=== PATIENT | male | born 1980 | race Caucasian/White ===

== ENCOUNTER 2019-09-19 17:49 | Observation (INO) | payer BC, SELFPAY ==
--- NOTE | ~2019-09-19 | XR_ITS ---
EXAMINATION: XR surgery orthopedic DATE: 09/20/2019 17:57 INDICATION: Right tibial nailing TECHNIQUE: 9 fluoroscopic spot images of the right tibia were obtained during procedure performed by Dr. Bowman. Radiologist was not present for the imaging or procedure. The amount of fluoroscopy t edin used during this procedure was 3.6 minutes. COMPARISON: 09/20/2019 FINDINGS: Images demonstrate placement of an antegrade intramedullary boom with proximal and distal interlocking screw fixation spanning a mildly comminuted oblique fracture of the mid to distal right tibial diaph ysis. There is approximately one cortical width residual posterior and lateral displacement. Similar degree of mild displacement of a comminuted fracture of the proximal right fibular diaphysis which is without fixation. IMPRESSION: 1. Comminuted right fibular and tibial diaphyseal fractures with antegrade intramedullary boom fixatio n of the tibial fracture. See procedure note for further detail. Reviewed, dictated and finalized at location A. IMPRESSION: 1. Comminuted right fibular and tibial diaphyseal fractures with antegrade intr amedullary boom fixation of the tibial fracture. See procedure note for further detail.
--- NOTE | ~2019-09-19 | XR_ITS ---
EXAMINATION: XR tibia fibula RT 2V EXAM DATE: 09/19/2019 18:49 INDICATION: Postreduction. TECHNIQUE: Right tibia/fibula frontal and lateral projections obtained and reviewed. Comparison is ma de to prior examination from earlier same date. FINDINGS: The right distal tibial diaphyseal and proximal fibular diaphyseal mildly comminuted fract ures with slight interval reduction. There is still about a centimeter of displacement of the tibial fracture. Alignment is near-anatomic. A cast or splint has been applied. The ankle was imaged on these examinations and the mortise appears intact. IMPRESSION: 1. Splinted partially reduced right tibial and fibular shaft fractures. 2. Unremarkable ankle. Reviewed, dictated and finalized at location A.
--- NOTE | ~2019-09-19 | XR_ITS ---
EXAMINATION: XR wrist RT min 3V DATE: 09/20/2019 10:59 INDICATION: Right wrist pain. TECHNIQUE: 4 views of right wrist were obtained. COMPARISON: None. FINDINGS: Bone alignment is normal. No fracture. Joint spaces are well maintained. IMPRESSION: 1. Normal right wrist. Reviewed, dictated and finalized at location A. IMPRESSION: 1. Normal right wrist.
--- NOTE | ~2019-09-19 | XR_ITS ---
EXAMINATION: XR tibia fibula RT 2V EXAM DATE: 09/19/2019 18:29 INDICATION: Initial encounter following injury, with pain of the right leg. TECHNIQUE: Right tibia/fibula frontal and lateral projections obtained and reviewed. There is no ez or study for comparison. FINDINGS: There is acute closed posttraumatic oblique fracture through the distal third of the right radial diaphysis with about a centimeter of posterior displacement and mild posterior angulation. Th ere is mild comminution. There is acute closed post traumatic fracture of the proximal third aspect of the fibula with mild co mminution and displacement of a fragment. There is soft tissue swelling. Please note that the malleoli were not completely imaged on these 2 images. The knee was imaged and i s unremarkable. IMPRESSION: 1. Right radial and tibial shaft fractures. 2. Consider 2 views right ankle exam if patient is willing. Reviewed, dictated and finalized at location A.
[2019-09-19 17:46] VITALS: BP 127/92; PULSE 108; RESP 17; TEMP 36.7; O2SAT 98
--- NOTE | 2019-09-19 18:38 | ED.LOWEXIN ---
HPI - Extremity Injury (Lower) General Chief Complaint: Extremity Injury, Lower Stated Complaint: lower leg injury Time Seen by Provider: 09/19/19 18:06 Source: patient Mode of arrival: EMS Limitations: no limitations History of Present Illness HPI Narrative: Patient is a 39-year-old male who presents to the emergency department via EMS with injury to his right lower leg. Patient was playing roller hockey with his daughters and his rollerblade caught on a seen in the pavement causing him to fall. Patient felt immediate pain to the mid tib-fib region on his right leg and felt it break. Patient was given Zofran and fentanyl by EMS for treatment of nausea and pain. Patient denies any other injuries or complaints. complaint: leg injury and fall Onset (ago): minute(s) Related Data Home Medications Medication Instructions Recorded Confirmed No Home Medications 09/19/19 09/19/19 Allergies Allergy/AdvReac Type Severity Reaction Status Date / Time No Known Allergies Allergy Verified 09/19/19 18:48 Review of Systems Review of Systems: All systems reviewed & are unremarkable except as noted in HPI and below PMFSH Past Medical History Medical History (Updated 09/19/19 @ 19:39 by Yessica Murphy MD) Depression Hyperlipidemia Family History Family History (Updated 12/27/18 @ 08:18 by DOCTOR UNKNOWN) Other Family history of kidney disease Family history of liver disease Social History Social History (Updated 09/19/19 @ 19:31 by Yessica Murphy MD) Smoking status: Never smoker Living arrangements: with family Exam Const: General: cooperative, alert and diaphoretic Nutritional Appearance: well nourished Orientation/consciousness: patient oriented x3 Limitations: no limitations HENMT: Mouth: Yes lip normal and Yes moist mucous membranes Resp: Effort & Inspection: normal respiratory effort Auscultation: clear to auscultation bilaterally Cardio: Rate: regular rate Rhythm: regular rhythm GI: GI Palp: Yes Soft to palpation and No Tenderness to palpation present (GI) Auscultation: normal bowel sounds Skin: General skin exam: normal color and no rashes or lesions noted Neuro: General: patient oriented x3 Cognition (Neuro): normal cognition Speech: normal speech Extrem: General: full ROM Right lower extremity: lower leg Details: tenderness Location: of the proximal fibula and of the midshaft tibia, localized swelling Location: of the mid lower leg and deformity Location: of the mid lower leg Psych: Mental Status: mental status grossly normal Affect: normal affect Attitude: cooperative Course Consultations Consultation #1: Case discussed with Dr. Bowman, orthopedic surgery, who will see patient for surgical repair of his fracture. Agreeable with plan for admission for pain control due to unstable nature of fracture Date: 09/19/19 Time: 18:42 Vital Signs Vital signs: Vital Signs Temperature 98.0 F 09/19/19 17:46 Pulse Rate 108 H 09/19/19 17:46 Respiratory Rate 17 09/19/19 17:46 Blood Pressure 127/92 H 09/19/19 17:46 Pulse Oximetry 98 09/19/19 17:46 Temperature 98.0 F 09/19/19 17:46 Pulse Rate 105 H 09/19/19 18:45 Respiratory Rate 18 09/19/19 18:45 Blood Pressure 122/77 09/19/19 18:45 Pulse Oximetry 98 09/19/19 18:45 Procedures Orthopedic Splinting/Casting Injury #1: Side: right Lower Extremity Injury Location: lower leg Splint: customized in ED OCL: long leg (Posterior and stirrup) Pre-Procedure Neuro Vascular Exam: normal Post-Procedure Neuro Vascular Exam: normal MDM - Extremity Injury (Lower) Imaging Data Radiologist's impression: ITS Impressions Tibia/Fibula X-Ray 09/19/19 18:34 IMPRESSION: 1. Right radial and tibial shaft fractures. 2. Consider 2 views right ankle exam if patient is willing. Tibia/Fibula X-Ray 09/19/19 18:52 IMPRESSION: 1. Splinted partially
[2019-09-19] MEDS: HYDROMORPHONE HCL 1 MG/ML INJ IV PUSH ×2 (18:40→23:03)
--- NOTE | 2019-09-19 18:40 | PC.NURSE ---
Patient received hydromorphone 1mg IV push stat, per verbal order by Dr. Murphy.
[2019-09-19 18:45] VITALS: BP 122/77; PULSE 105; RESP 18; O2SAT 98
[2019-09-19 19:47] VITALS: BP 117/83; PULSE 103; RESP 20; O2SAT 98
[2019-09-19 20:30] VITALS: BP 121/70; PULSE 113; RESP 16; TEMP 36.8; O2SAT 100; BMI 27.9
--- NOTE | 2019-09-19 20:57 | ADMGEN ---
This patient, Joe Ceja Blind, was admitted to [address] [facility] Surg Room 315-01. Patient/family oriented to hospital policies and general routines including ID bracelet, bed and alarms, visiting hours, pain management, procedures, bathroom and other care routines, personal items, smoking policy, room service/diet, and visiting hours. Valuables list has been completed. Information on how to activate the Rapid Response Team has been discussed. Patient/Family are encouraged to report perceived risks to care and to ask questions if they do not understand what they are told or what they should do.
[2019-09-20] VITALS (13 sets, daily range): BP systolic 99–138; BP diastolic 70–94; PULSE 84–112; RESP 10–20; TEMP 36.4–37.1; O2SAT 94–100
[2019-09-20] MEDS: HYDROMORPHONE HCL 1 MG/ML INJ IV PUSH ×3 (05:01→13:26)
[2019-09-20] MEDS: DEXTROSE 5%/0.45% SOD CHL 1,000 ML 125 ML IV CONT (10:42)
[2019-09-20 10:56] LABS: Hematocrit 37.8 % (42.0-52.0); Mean Corpuscular HGB Conc 34.4 g/dl (32-36); Mean Corpuscular Hemoglobin 30.8 pg (26-34); Mean Corpuscular Volume 89.6 fl (80-100); Mean Platelet Volume 9.5 fl (7.4-10.4); Platelet Count Result 220 k/mm3 (150-375); Red Blood Count 4.22 M/mm3 (4.6-6.20); Red Cell Distribution Width 12.1 % (11.5-14.5); White Blood Count 6.5 K/mm3 (4.5-10.0)
[2019-09-20 11:10] LABS: Blood Urea Nitrogen 14 mg/dL (9-20); Calcium 8.6 mg/dL (8.4-10.2); Carbon Dioxide 31 mmol/L (22-30); Chloride 103 mmol/L (98-107); Estimated CRCL calculation 115 ml/min; Estimated Glomerular Filt Rate > 60; Glucose 101 mg/dL (75-110); Potassium 3.8 mmol/L (3.4-5.0); Sodium 139 mmol/L (137-145)
--- NOTE | 2019-09-20 12:42 | WPDANESEPPF ---
Anes - Initial Pre Proc Eval Procedure: Operation Date: 09/20/19 15:15 Proposed Procedures p OPEN REDUCTION INTERNAL FIXATION WITH RIGHT TIBIAL NAIL - Pk Bowman MD Date/Time: 09/20/19 12:42 Surgeon: Pk Bowman MD Pre Op Diagnosis: Right Tib Fib Fracture Patient Data Age: 39 Gender: M Height: 5 ft 11 in Weight: 90.9 kg Last Vital Signs Temp 36.6 C 09/20/19 06:00 Pulse 100 09/20/19 06:00 Resp 16 09/20/19 06:00 BP 99/70 L 09/20/19 06:00 Pulse Ox 99 09/20/19 06:00 Allergies Allergy/AdvReac Type Severity Reaction Status Date / Time No Known Allergies Allergy Verified 09/19/19 18:48 Home Medications Medication Instructions Recorded Confirmed Type pravastatin 20 mg PO HS 09/19/19 09/19/19 History venlafaxine 75 mg PO HS 09/19/19 09/19/19 History Laboratory Tests 09/20/19 09/20/19 10:36 10:36 WBC 6.5 K/mm3 K/mm3 (4.5-10.0) RBC 4.22 M/mm3 L M/mm3 (4.6-6.20) Hgb 13.0 g/dL L g/dL (14.0-18.0) Hct 37.8 % L % (42.0-52.0) MCV 89.6 fl fl (80-100) MCH 30.8 pg pg (26-34) MCHC 34.4 g/dl g/dl (32-36) RDW 12.1 % % (11.5-14.5) Plt Count 220 k/mm3 k/mm3 (150-375) MPV 9.5 fl fl (7.4-10.4) Sodium 139 mmol/L mmol/L (137-145) Potassium 3.8 mmol/L mmol/L (3.4-5.0) Chloride 103 mmol/L mmol/L (98-107) Carbon Dioxide 31 mmol/L H mmol/L (22-30) BUN 14 mg/dL mg/dL (9-20) Creatinine 0.80 mg/dL mg/dL (0.7-1.3) Estim Creat Clear Calc 115 ml/min ml/min Estimated GFR > 60 (59 - ) Glucose 101 mg/dL mg/dL (75-110) Calcium 8.6 mg/dL mg/dL (8.4-10.2) Patient hx anesthesia problems: none Family hx anesthesia problems: none PMFSH Past Medical History Medical History Depression Hyperlipidemia Family History Family History Father Family history of kidney disease Diabetes mellitus Acute myocardial infarction Hypertension Mother Hypertension Diabetes mellitus Social History Social History Smoking status: Never smoker Second hand tobacco smoke exposure: No Alcohol intake: current Drinks per week: 4 Substance use: never Living arrangements: with family Gender identity (if verbalized by the patient): Male Spiritual care concerns: No Anes - Eval Final PreProcedure Day of Procedure 09/20/19 12:42 Patient weight: overweight ASA classification: II Emergent: no Anesthetic plan: proceed Anesthesia type and monitoring: general LMA and standard monitoring Informed Consent: The patient's anesthetic plan and its attendant risks and benefits were discussed with the patient/family/POA. Questions were solicited and answers provided to the satisfaction of the patient/family/POA.
--- NOTE | 2019-09-20 14:30 | PC.NURSE ---
To OR per [ bed.], IV [ 20 RH SL.]
[2019-09-20] MEDS: LACTATED RINGERS 1,000 ML 30 ML IV CONT ×2 (14:40→18:14)
--- NOTE | 2019-09-20 14:47 | WPDANESEFPP ---
Anes - Eval Final PreProcedure Day of Procedure 09/20/19 14:47 Patient weight: overweight Heart: regular rate and rhythm Lungs: clear to auscultation Airway: Mallampati scale class 1 Neurological: alert and oriented Last oral intake: >/= 8 hours ASA classification: II Emergent: no Anesthetic plan: proceed Anesthesia type and monitoring: general LMA and standard monitoring Informed Consent: The patient's anesthetic plan and its attendant risks and benefits were discussed with the patient/family/POA. Questions were solicited and answers provided to the satisfaction of the patient/family/POA.
--- NOTE | 2019-09-20 15:23 | PM.IMHP ---
H&P: HPI History of Present Illness Chief complaint: Right Tib Fib Fracture Narrative: Joe Lane is a 39 year old male who fell while rollerblading yesterday. He twisted his ankle and leg. He was seen in the emergency room. Closed reduction was performed with long leg splinting. He required IV pain medication, and was admitted for close observation and pain control. The patient is more comfortable with Dilaudid IV at this time. Denies neurologic complaints. Complains of wrist pain. Review of Systems Constitutional: Constitutional: Denies body ache(s) and Denies chills ENT: Reports Normal hearing present Cardiovascular: Cardiovascular: Denies chest pain and Denies leg edema Respiratory: Respiratory: Denies cough and Denies dyspnea on exertion Gastrointestinal: Gastrointestinal: Denies diarrhea Musculoskeletal: Musculoskeletal: Denies myalgias Integumentary/Breasts: Skin/Breast: Denies wounds Neurologic: Denies headache(s) Psychiatric: Psychiatric: Denies anxiety and Denies behavioral changes [facility] Past Medical History Medical History Depression Hyperlipidemia Family History Family History Father Family history of kidney disease Diabetes mellitus Acute myocardial infarction Hypertension Mother Hypertension Diabetes mellitus Social History Social History Smoking status: Never smoker Second hand tobacco smoke exposure: No Alcohol intake: current Drinks per week: 4 Substance use: never Living arrangements: with family Gender identity (if verbalized by the patient): Male Spiritual care concerns: No Meds Home Medications and Allergies Home Medications Medication Instructions Recorded Confirmed Type pravastatin 20 mg PO HS 09/19/19 09/19/19 History venlafaxine 75 mg PO HS 09/19/19 09/19/19 History Allergies Allergy/AdvReac Type Severity Reaction Status Date / Time No Known Allergies Allergy Verified 09/19/19 18:48 Vital Signs Vital Signs - 24 hr 09/19/19 17:46 09/19/19 18:45 09/19/19 19:47 Temperature 36.7 C Pulse Rate 108 H 105 H 103 H Respiratory Rate 17 18 20 Blood Pressure 127/92 H 122/77 117/83 Pulse Oximetry 98 98 98 09/19/19 20:30 09/20/19 06:00 09/20/19 14:30 Temperature 36.8 C 36.6 C 37.1 C Pulse Rate 113 H 100 84 Respiratory Rate 16 16 16 Blood Pressure 121/70 99/70 L 110/73 Pulse Oximetry 100 99 94 Exam Narrative: Exam Narrative: Healthy-appearing male. Alert oriented x3. In mild discomfort. Right leg appropriately splinted above the knee. Wiggles toes. Capillary refill brisk. No obvious deformity at this time. Contralateral lower extremity normal. Heart regular rate rhythm. Lungs clear to auscultation. Abdomen soft. H&P: Results Labs Labs: Short CBC 09/20/19 Range/Units 10:36 WBC 6.5 (4.5-10.0) K/mm3 Hgb 13.0 L (14.0-18.0) g/dL Hct 37.8 L (42.0-52.0) % Plt Count 220 (150-375) k/mm3 BMP 09/20/19 10:36 Sodium 139 Potassium 3.8 Chloride 103 Carbon Dioxide 31 H BUN 14 Creatinine 0.80 Glucose 101 Calcium 8.6 Assessment and Plan Assessment and plan (1) Traumatic closed displaced fracture of shaft of right tibia and fibula: Qualifiers: Encounter type: initial encounter Qualified Code(s): S82.201A - Unspecified fracture of shaft of right tibia, initial encounter for closed fracture; S82.401A - Unspecified fracture of shaft of right fibula, initial encounter for closed fracture Code(s): S82.201A - Unspecified fracture of shaft of right tibia, initial encounter for closed fracture; S82.401A - Unspecified fracture of shaft of right fibula, initial encounter for closed fracture Status: Acute Assessment and Plan: Displaced, unstable tibia shaft fracture. Distal oblique fractur
[2019-09-20] MEDS: ceFAZolin 2 GM/D5W 50 ML 2 GM/50 ML BAG IVPB (15:44)
[2019-09-20] MEDS: BUPIVACAINE/EPINEPHRINE 0.5% 30 ML VIAL INFILTRATE (17:57)
--- NOTE | 2019-09-20 18:37 | P.OP_ITS ---
Procedure Note - Detailed Date of procedure: 09/20/19 Pre-op diagnosis: Right Tib Fib Fracture Post-op diagnosis: same (1.Displaced comminuted oblique distal tibial shaft fracture. 2.Proximal fibular shaft fracture.) Procedure performed: ORIF right tibia-fibula fracture with locked IM nail. Implants: Darragh, Alpha tibial nail. [id number]. Proximal screws 5x45mm x2. distal screws 5x40, and 5x52.5mm. Anesthesia: GLMA Surgeon: Pk Bowman MD Estimated blood loss (mL): 300 Drains: No Complications: No immediate complications Condition: stable Disposition: PACU Findings: Operative details: Preoperative antibiotics were given. A general anesthetic was administered. The limb was prepped and draped in the usual sterile fashion with a well-padded tourniquet high on the thigh, but not used. Biplanar fluoroscopy was used throughout the procedure to confirm anatomic reduction and appropriate placement of all implants. Reduction of the fracture was obtained with combination of leg positioning and traction. The pointed reduction forceps were used to obtain and maintain the anatomic reduction. A longitudinal incision was created at the medial aspect of the patella and patellar tendon. A small arthrotomy was made with a mid vastus splitting approach. A semi extended approach was performed. The starting point on the tibia was identified. The guide pin was placed in the appropriate trajectory. The soft tissues were carefully protected. This proximal tibia was opened with a starting reamer. The guidewire was placed across the fracture. Sequential reaming was performed to 1-1/2 millimeters over the intended nail size. The nail length was measured carefully. The nail was carefully impacted across fracture site and during visualization. No blocking screws were required. The nail was locked proximally and distally with a freehand technique using fluoroscopic guidance. The wounds were all irrigated and closed in layers with absorbable suture. #1 Vicryl for the joint capsule. 2-0 Vicryl followed by conner in the skin. A sterile bulky dressing with a posterior splint was applied.
--- NOTE | 2019-09-20 18:51 | SUR.PHASEI ---
1849 called and updated on pt condition, pt spoke with personally
[2019-09-20] MEDS: ONDANSETRON INJ 4 MG/2 ML VIAL IV PUSH (19:11)
[2019-09-20] MEDS: HEPARIN SODIUM 5,000 UNITS/ML VIAL 5000 UNITS SUB-Q (22:07)
[2019-09-20] MEDS: KETOROLAC 15 MG/ML VIAL (*BKC) IV PUSH (22:07)
[2019-09-21 01:43] VITALS: BP 105/58; PULSE 109; RESP 18; TEMP 36.6; O2SAT 99
--- NOTE | 2019-09-21 03:56 | PC.NURSE ---
First dose of torodol given late at 2200 on 09/20/19. Midnight dose of torodol non-administered on 09/21/19 per pharmacy recommendation.
[2019-09-21 05:43] VITALS: BP 100/63; PULSE 84; RESP 16; TEMP 36.6; O2SAT 97
[2019-09-21] MEDS: KETOROLAC 15 MG/ML VIAL (*BKC) IV PUSH ×2 (06:02→12:07)
[2019-09-21] MEDS: HEPARIN SODIUM 5,000 UNITS/ML VIAL 5000 UNITS SUB-Q (08:23)
[2019-09-21] MEDS: DOCUSATE SODIUM 100 MG CAPSULE PO (08:25)
[2019-09-21 14:00] VITALS: BP 131/73; PULSE 84; RESP 16; TEMP 36.8; O2SAT 100
--- NOTE | 2019-09-21 16:52 | PM.DS ---
DS: Diagnosis Admitting Diagnosis Admitting Diagnosis: Unspecified fracture of shaft of right tibia, initial encounter for closed fracture Discharge Diagnosis (1) Traumatic closed displaced fracture of shaft of right tibia and fibula: Qualifiers: Encounter type: initial encounter Qualified Code(s): S82.201A - Unspecified fracture of shaft of right tibia, initial encounter for closed fracture; S82.401A - Unspecified fracture of shaft of right fibula, initial encounter for closed fracture Code(s): S82.201A - Unspecified fracture of shaft of right tibia, initial encounter for closed fracture; S82.401A - Unspecified fracture of shaft of right fibula, initial encounter for closed fracture Status: Acute Assessment and Plan: Toe-touch weight-bearing for 2-4 weeks. Gradual increase weight-bearing after that. Follow up in the clinic 2 weeks postoperatively. We will place him in a cast boot. DS: Summary Hospital Course Reason for hospitalization: Admitted for IV pain control and edema management. Underwent open reduction and internal fixation with IM boom. Hospital Course: Tolerated surgery well. Progressed appropriately with therapy. Status at Discharge Functional status at discharge: uses cane/walker Time Spent with Patient Time attestation: Total time spent providing and/or coordinating discharge services: Exam Narrative: Exam Narrative: Dressing intact. Posterior splint. The wrap extends over the knee. Calf is soft. No evidence of compartment syndrome. Patient is very comfortable at rest with oral pain control. Const: General: no acute distress Resp: Effort & Inspection: normal respiratory effort Neuro: Motor exam (neuro): 5/5 motor strength present throughout Sensory Exam: normal sensation Psych: Mental Status: mental status grossly normal Speech and movement: Normal speech and movement present Discharge Plan Discharge Attending physician on discharge: Pk Bowman Consulting providers: Pk Bowman Discharging Clinician: Pk Bowman Patient Disposition: Home, Self-Care Activity: follow weight bearing status Diet: as tolerated Wound Care Instructions: keep dressing dry Discharge Instructions: Toe-touch weight-bearing. Patient Instructions: Antibiotic Form Stand Alone Forms: General Discharge Information Follow-up/Referrals: Pk Bowman MD [Physician] - 2 Weeks Discharge Medications: New oxycodone-acetaminophen 5-325 mg tablet 1 - 2 tablet PO Q4-6H MDD 8 tablets PRN (Reason: pain) Qty: 40 RF: 0 Continued pravastatin 20 mg tablet 20 mg PO HS RF: 0 venlafaxine 75 mg capsule,extended release 24hr 75 mg PO HS RF: 0 Date of admission: 09/20/19 19:58 Primary Care Provider: Yong,Estephania Admitting Provider: Pk Bowman Attending physician on admission: Pk Bowman Condition: Stable
== END 2019-09-21 18:00 | disposition home or self-care (01) ==
LOC: ANHED 18:53 → ANH3MEDSUR 19:39
PROVIDERS: Admitting Provider Orthopaedic Surgery; Emergency Provider Emergency Medicine; PCP Physician Assistant; Visit Provider Orthopaedic Surgery
PROC: (CPT 27759; principal; 2019-09-20 15:15)
DX: S82.251A Displaced comminuted fracture of shaft of right tibia, initial encounter for closed fracture (principal); S82.401A Unspecified fracture of shaft of right fibula, initial encounter for closed fracture; W18.39XA Other fall on same level, initial encounter; Y93.51 Activity, roller skating (inline) and skateboarding
CPT/HCPCS: 27759; 29515; 36415; 73110; 73590; 80048; 85027; 96361; 96365; 96372; 96374; 96375; 96376; 97161; 97165; 99285; A9270; C1769; G0378; J0131; J0690; J1170; J1644; J1885; J2250; J2405; J2704; J3010; J7120

== ENCOUNTER 2020-11-11 14:34 | Outpatient (CLI) | payer BC, SELFPAY ==
--- NOTE | ~2020-11-11 | US_ITS ---
EXAMINATION:US venous doppler LE RT INDICATION:Right calf pain TECHNIQUE: Multiple grayscale, color flow and Doppler images of the right lower extremity deep venous systems were obtained and reviewed. COMPARISON:No prior studies for comparison. FINDINGS: The common femoral, superficial femoral and popliteal veins demonstrate normal respiratory variation, augmentation and compressibility. Color flow is also seen within the posterior tibial, pe roneal, greater saphenous and profunda veins. IMPRESSION: 1: No lower extremity deep venous thrombosis. Reviewed, dictated and finalized at location A.
== END 2020-11-11 14:35 | disposition home or self-care (01) ==
LOC: ANHIMG 14:41
PROVIDERS: PCP Physician Assistant; Visit Provider Physician Assistant
DX: M79.604 Pain in right leg (principal)
CPT/HCPCS: 93971